=== PATIENT | female | born 1950 | race Hispanic/Latino ===

== ENCOUNTER 2016-09-04 15:37 | Outpatient (CLI) | payer MEDICARE, OTHER | END 2016-09-04 15:38 | disposition home or self-care (01) | LOC: LABHHL 15:37 → LAB 15:37 | PROVIDERS: ATTEND Surgery | DX: R92.0 Mammographic microcalcification found on diagnostic imaging of breast (principal) | CPT/HCPCS: 88305 ==

== ENCOUNTER 2020-08-11 09:30 | Outpatient (CLI) | payer MEDICARE ==
--- NOTE | 2020-08-11 11:50 | Mammography Report ---
DIGITAL SCREENING MAMMOGRAM WITH CAD, 08/11/2020 CLINICAL INFORMATION / INDICATION: Routine screening mammography. SCREENING MAMMO TECHNIQUE: Digital bilateral 2D mammography was obtained in the craniocaudal and mediolateral obliqu e projections. This examination was interpreted with the benefit of Computer-Aided Detection analysis . COMPARISON: Prior mammograms 08/08/2019 and 08/07/2018 FINDINGS: Breast Density: The breasts are heterogeneously dense, which may obscure small masses. No dominant mass, suspicious calcifications, or architectural distortion in either breast. There is stable nodularity in the right breast, stable biopsy clip in the right breast, and stable be nign-appearing calcifications seen in both breasts. There has been no significant change compared wit h the prior examinations. IMPRESSION: No mammographic evidence of malignancy. Follow up recommendation: Routine yearly BI-RADS Category 2: Benign. A "normal" or negative report should not discourage follow up or biopsy of a clinically significant f inding. A written summary of these findings will be mailed to the patient. The patient will be entered into a mammography reporting system which will generate a reminder letter for the patient's next appointmen t at the appropriate interval. The [employer] recommends yearly mammograms starting at age 40 and continuing as l albert as a woman is in good health. Breast MRI is recommended for women with an approximate 20-25% or greater lifetime risk of breast cancer, including women with a strong family history of breast or ova maksim cancer or who have been treated for Hodgkin's disease. Signer Name: Marlene James MD Signed: 08/11/2020 11:45 AM Workstation Name: [id number]
== END 2020-08-11 09:31 | disposition home or self-care (01) ==
LOC: SPVWC 09:30
PROVIDERS: ATTEND Surgery
DX: Z12.31 Encounter for screening mammogram for malignant neoplasm of breast (principal); N63.10 Unspecified lump in the right breast, unspecified quadrant; N64.89 Other specified disorders of breast
CPT/HCPCS: 77067